=== PATIENT | female | born 1995 | race Caucasian/White ===

== ENCOUNTER 2017-12-20 18:49 | Emergency (ER) | payer BC ==
[2017-12-20 19:52] LABS: Bilirubin Negative (Negative); Blood, Urine Negative (Negative); Clarity CLEAR (Clear); Glucose, Urine (Dipstick) Negative (Negative); Leukocyte Negative (Negative); Nitrite Negative (Negative); Protein, Urine (Dipstick) Negative (Neg-Trace); Specific Gravity, Urine 1.015 (1.002-1.036); Urobilinogen 0.2 mg/dL (0.2-1.0); pH, Urine 7.5 (5.0-9.0)
[2017-12-20 19:54] LABS: Pregnancy Test - Urine (BHCG) Negative (Negative); Pregu Control Background? CLEAR/WHITE (CLR/WHITE); Pregu Control Bar Appear? YES (CONTROL BAR); Specific Gravity 1.015 (1.002-1.036)
[2017-12-20 19:55] LABS: #Eosinphils 0.2 thou/uL (0.0-0.7); #Lymphocytes 2.4 thou/uL (1.20-3.40); #Monocytes 0.5 thou/uL (0.11-0.59); #Neutrophils 7.6 thou/uL (1.40-6.50); %Basophils 0.4 % (0.0-1.0); %Eosinophils 1.5 % (0.0-10.0); %Lymphocytes 22.4 % (21.0-51.0); %Monocytes 4.9 % (0.0-10.0); %Neutrophils 70.8 % (42.0-75.0); Hemoglobin 13.2 g/dL (12.0-16.0); Mean Corpuscular HGB CONC 34.2 g/dL (32.0-36.0); Mean Platelet Volume 7.6 fL (7.4-10.4); Platelet Count 289 thou/uL (130-400); RBC Distribution Width 11.7 % (11.5-14.5); Red Blood Cell (RBC) Count 4.71 mill/uL (4.20-5.40); White Blood Cell (WBC) Count 10.7 thou/uL (4.8-10.8)
[2017-12-20 20:16] LABS: ALT (SGPT) 14 U/L (8-55); AST (SGOT) 13 U/L (5-34); Albumin 4.3 g/dL (3.5-5.0); Alkaline Phosphatase 83 U/L (40-150); Anion Gap 15 mmol/L (10-20); BUN (Urea Nitrogen) 11 mg/dL (7.0-18.7); Bilirubin, Total 0.2 mg/dL (0.2-1.2); CK (CPK) 65 U/L (29-168); Calc. Creatinine Clearance 0 mL/min (70-130); Calcium 8.9 mg/dL (7.8-10.44); Carbon Dioxide 23 mmol/L (22-29); Chloride 107 mmol/L (98-107); Estimated GFR-MDRD Greater than 90; Globulin 2.8 g/dL (2.4-3.5); Glucose 99 mg/dL (70-105); Potassium 3.7 mmol/L (3.5-5.1); Protein, Total 7.1 g/dL (6.0-8.3); Sodium 141 mmol/L (136-145)
== END 2017-12-20 20:38 | disposition home or self-care (01) ==
LOC: ERS 18:49
DX: E86.0 Dehydration (principal); F41.9 Anxiety disorder, unspecified; F32.9 Major depressive disorder, single episode, unspecified; Z79.899 Other long term (current) drug therapy
CPT/HCPCS: 36415; 80053; 81003; 81025; 82550; 85025; 93005

== ENCOUNTER 2018-06-20 10:51 | Outpatient (CLI) | payer BC ==
--- NOTE | 2018-06-20 12:57 | RAD ---
LUMBAR SPINE 2 VIEWS: INDICATION: Spina bifida. FINDINGS: Lumbar vertebrae maintain normal height and alignment. Disk spaces are normally maintained. Rudimen tary ribs are seen in what will be designated as T12 which leaves lumbar-type vertebrae. IMPRESSION: Unremarkable lumbar spine. POS: [facility]
== END 2018-06-20 10:52 | disposition home or self-care (01) ==
LOC: RAD 10:51
PROVIDERS: ATTEND Obstetrics & Gynecology
DX: Z13.79 Encounter for other screening for genetic and chromosomal anomalies (principal); Q76.0 Spina bifida occulta
CPT/HCPCS: 72100

== ENCOUNTER 2018-11-04 16:42 | Inpatient (IN) | payer BC ==
[2018-11-04 17:54] VITALS: BMI 33.2
[2018-11-04] MEDS ORDERED: Lactated Ringer's 1,000 ML IV SCH (19:30)
[2018-11-04] MEDS: Butorphanol Tartrate 1 MG/ML VIAL SLOW IVP PRN (19:59)
[2018-11-04] MEDS: Lactated Ringer's 1,000 ML IV SCH (20:47)
[2018-11-04] MEDS ORDERED: Promethazine HCl 25 MG/ML VIAL IM PRN (21:01)
[2018-11-04] MEDS ORDERED: HYDROcodone/Acetaminophen 5/325 mg Tablet PO PRN ×2 (21:01)
[2018-11-04] MEDS ORDERED: Meperidine HCl/PF 25 MG/ML VIAL IM/IV PRN (21:01)
[2018-11-04] MEDS ORDERED: NS / Oxytocin 40 units/1000ml 1,000 ML IV PRN (21:01)
[2018-11-04] MEDS ORDERED: Ibuprofen 800 MG TAB PO PRN (21:01)
[2018-11-04] MEDS ORDERED: Lidocaine 1% (PF) 30 ML VIAL SC PRN (21:01)
[2018-11-04] MEDS ORDERED: Ondansetron PF 4 MG/2 ML Vial IVP PRN (21:01)
--- NOTE | 2018-11-04 21:09 | PDOC.LDHP ---
Labor and Delivery H&P Chief complaint: contractions HPI: 23 yo WF presents c/o UCs and decreased FM this PM. Denies SROM or bleeding. Current gestational age (weeks): 35 Due date: 12/04/18 Dating criteria: last menstrual period Grav: 1 Para: 0 OB History Details: PNC with Dr. Fermin w/o complications. Current complications: none Abnormal US findings: No Past Medical History: spina bifida occulta, anxiety Current medications: pre- vitamins, iron, other (Zoloft) Previous surgical history: other (umbilical hernia, breast augmentation) Allergies/Adverse Reactions: Allergies Allergy/AdvReac Type Severity Reaction Status Date / Time No Known Allergies Allergy Unverified 11/04/18 17:42 Social history: none - Physical Exam Vital signs reviewed and normal: yes General: NAD Lungs: nonlabored breathing Abdomen: NTTP Extremeties: trace edema FHT: category 1 [place] contractions every: UCs q 5-8 mins - Vaginal Exam cm dilated: 2 Effacement: 75% Station: -1 - OB Labs GBS: unknown - Assessment L&D Assessment: labor - Plan Plan: admit to L&D, GBS antibiotic prophylaxis, informed consent obtained (will admit and observe for progress, start GBS ppx and steroids for FLM, Dr. Cummings aware of admit)
[2018-11-04] MEDS ORDERED: Penicillin G Potassium 5 MILL.UNITS in Sodium Chloride 0.9% 100 ML IVPB SCH (21:15)
[2018-11-04] MEDS: Betamet Acet/Betamet Na Ph 30 MG/5 ML VIAL IM SCH (21:33)
[2018-11-04 21:59] LABS: Hemoglobin 13.7 g/dL (12.0-16.0); Mean Corpuscular Hemoglobin 28.3 pg (27.0-31.0); Mean Corpuscular Volume 83.1 fL (78.0-98.0); Mean Platelet Volume 8.5 fL (7.4-10.4); Platelet Count 332 thou/uL (130-400); RBC Distribution Width 11.7 % (11.5-14.5); Red Blood Cell (RBC) Count 4.85 mill/uL (4.20-5.40); White Blood Cell (WBC) Count 13.9 thou/uL (4.8-10.8)
[2018-11-04 22:38] LABS: Syphilis Antibody Nonreactive (Nonreactive); Syphilis Antibody Index 0.03 S/CO (<1.00 Non-Reactive)
[2018-11-04 22:39] LABS: HBSAg Index 0.44 S/CO (0-0.99); Hep B Surf Ag Non-Reactive S/CO (NonReactive)
[2018-11-05] MEDS: Penicillin G 2.5 MILL.units 2.5 MILL.UNITS in Premix Bag 1 BAG IVPB SCH ×2 (01:11→05:30)
[2018-11-05] MEDS: Butorphanol Tartrate 1 MG/ML VIAL SLOW IVP PRN ×2 (03:04→16:55)
[2018-11-05] MEDS: Lactated Ringer's 1,000 ML IV SCH ×2 (04:47→13:51)
--- NOTE | 2018-11-05 08:44 | PDOC.LDPN ---
Labor & Delivery Progress Note - Subjective Subjective: comfortable - Objective Vital signs reviewed and normal: yes General: NAD Uterine fundus: non tender Dilation: 1 Effacement: 50% Station: -2 FHT: category 1 [place] contractions every: rare irritability - Assessment (1) contractions Code(s): O47.9 - FALSE LABOR, UNSPECIFIED Current Visit: Yes Status: Acute (2) 35 weeks gestation of Code(s): Z3A.35 - 35 WEEKS GESTATION OF Current Visit: Yes Status : Acute -: SVE stable from yesterday Continue IVF Plan for BMTZ #2 @ 2129 D/C PCN G Allow diet. Plan to observe until BMTZ course complete, then plan for d/c home this PM or tomorrow AM
[2018-11-05] MEDS: Betamet Acet/Betamet Na Ph 30 MG/5 ML VIAL IM SCH (21:35)
--- NOTE | 2018-11-05 21:52 | PDOC.LDPN ---
Labor & Delivery Progress Note - Subjective Subjective: comfortable - Objective Vital signs reviewed and normal: yes General: NAD Uterine fundus: non tender FHT: category 1 [place] contractions every: rare ctx - Assessment (1) contractions Code(s): O47.9 - FALSE LABOR, UNSPECIFIED Current Visit: Yes Status: Acute (2) 35 weeks gestation of Code(s): Z3A.35 - 35 WEEKS GESTATION OF Current Visit: Yes Status : Acute -: Now s/p BMTZ x2 SVE unchanged throughout the day Desires d/c home. PTL warnings reviewed.
--- NOTE | 2018-11-06 04:48 | DIS ---
DATE OF ADMISSION: 11/04/2018 DATE OF DISCHARGE: 11/05/2018 ADMISSION PHYSICIAN: Renny Wilson MD DISCHARGE PHYSICIAN: Jazmyne Chaves DO ADMISSION DIAGNOSES: 1. 35 week 5 day intrauterine . 2. Threatened labor. DISCHARGE DIAGNOSES: 1. 35 week 6 day intrauterine . 2. Threatened labor. BRIEF HOSPITAL COURSE: Ms. Sapna Finn is a 23-year-old, G1, P0, at 35 weeks and five days who presented with complaints fo decreased movement and notable contractions. The heart tracing was reassuring/reactive. Patient was found to be in labor. She had a slight cervical change from 1 to 2 cm. Therefore, was kept for observation. She received betamethasone course for lung maturity. She was also initially started on group B strep prophylaxis, however, this has been discontinued as she did not advance any cervical dilation. Group B strep culture is still pending. Patient was observed for over 24 hours with no additional cervical change and desired to be discharged home today. She has followup scheduled with me on 11/08/2018. ACTIVITY RESTRICTIONS: Recommended pelvic rest. DIET: Regular. CODE: Full. FOLLOWUP: Follow up in three days. Job ID: [id number] MTDD
== END 2018-11-05 22:00 | disposition home or self-care (01) | DRG 833 ==
LOC: L&D/OP 16:42 → L&D 21:22
PROVIDERS: ADMIT Obstetrics & Gynecology; ATTEND Obstetrics & Gynecology
DX: O47.03 False labor before 37 completed weeks of gestation, third trimester (principal); Z3A.35 35 weeks gestation of pregnancy; O99.343 Other mental disorders complicating pregnancy, third trimester; F41.9 Anxiety disorder, unspecified
CPT/HCPCS: 36415; 85027; 86780; 86850; 86900; 86901; 87081; 87340; J0595; J0702; J2540; J3490

== ENCOUNTER 2018-11-11 14:34 | Day surgery (SDC) | payer BC ==
[2018-11-11 15:18] VITALS: BP 128/81; TEMP 98.8; BMI 35.5
--- NOTE | 2018-11-11 15:54 | PDOC.LDHP ---
Labor and Delivery H&P Chief complaint: other (PIH workup) HPI: 23 y/o G1 at 36w5d, patient of Dr. Chaves, sent from clinic for elevated BPs. Also starting to have some ctx more regularly. Denies VB, LOF, PIH sx or other concerns. +FM. ROS neg for HEENT, CV, pulm, GI, , neuro, psych, skin, musculoskeletal, or constitutional symptoms other than mentioned above. OB History Details: First Current complications: none Past Medical History: None Current medications: pre- vitamins Previous surgical history: none Allergies/Adverse Reactions: Allergies Allergy/AdvReac Type Severity Reaction Status Date / Time No Known Allergies Allergy Verified 11/11/18 15:18 Social history: none - Physical Exam Vital signs reviewed and normal: yes General: NAD, resting Lungs: nonlabored breathing Abdomen: gravid Extremeties: no edema FHT: category 1 [place] contractions every: Irregular 2-7 mins - Assessment 23 y/o G1 at 36w5d with no e/o preeclampsia. BPs, labs normal. status reassuring with reactive NST. - Plan -: D/c home with precautions. Advised to keep all appointments.
[2018-11-11 16:20] LABS: Creatinine, Urine 118.92 mg/dL (47-110)
[2018-11-11 16:23] LABS: #Eosinphils 0.1 thou/uL (0.0-0.7); #Lymphocytes 1.8 thou/uL (1.20-3.40); #Neutrophils 9.3 thou/uL (1.40-6.50); %Basophils 0.3 % (0.0-1.0); %Eosinophils 0.7 % (0.0-10.0); %Lymphocytes 14.6 % (21.0-51.0); %Monocytes 8.4 % (0.0-10.0); Hemoglobin 13.5 g/dL (12.0-16.0); Mean Corpuscular HGB CONC 34.9 g/dL (32.0-36.0); Mean Corpuscular Hemoglobin 28.8 pg (27.0-31.0); Mean Corpuscular Volume 82.7 fL (78.0-98.0); Mean Platelet Volume 7.7 fL (7.4-10.4); Platelet Count 325 thou/uL (130-400); RBC Distribution Width 11.6 % (11.5-14.5); White Blood Cell (WBC) Count 12.2 thou/uL (4.8-10.8)
[2018-11-11 16:41] LABS: ALT (SGPT) 7 U/L (8-55); AST (SGOT) 10 U/L (5-34); Albumin 3.5 g/dL (3.5-5.0); Alkaline Phosphatase 180 U/L (40-150); Anion Gap 15 mmol/L (10-20); BUN (Urea Nitrogen) 9 mg/dL (7.0-18.7); Bilirubin, Total 0.2 mg/dL (0.2-1.2); Calc. Creatinine Clearance 181 mL/min (70-130); Carbon Dioxide 19 mmol/L (22-29); Chloride 103 mmol/L (98-107); Estimated GFR-MDRD Greater than 90; Globulin 3.5 g/dL (2.4-3.5); Glucose 99 mg/dL (70-105); Potassium 4.1 mmol/L (3.5-5.1); Sodium 133 mmol/L (136-145)
== END 2018-11-11 17:15 | disposition home or self-care (01) ==
LOC: L&D/OP 14:34
PROVIDERS: ATTEND Obstetrics & Gynecology
DX: O99.89 Other specified diseases and conditions complicating pregnancy, childbirth and the puerperium (principal); R03.0 Elevated blood-pressure reading, without diagnosis of hypertension; Z3A.36 36 weeks gestation of pregnancy
CPT/HCPCS: 36415; 80053; 82570; 84156; 85025; 99284

== ENCOUNTER 2018-11-20 18:51 | Day surgery (SDC) | payer BC ==
[2018-11-20 19:24] VITALS: BMI 35.2
[2018-11-20] MEDS ORDERED: hydrALAZINE 20 MG/ML VIAL SLOW IVP PRN (19:44)
--- NOTE | 2018-11-20 19:45 | PDOC.EVN ---
Event Note - Event Note Event Note: HISTORY AND PHYSICAL Time: 1945 Chief complaint: other (Possible SROM at 1230) HPI: Patient of Dr Hernandez Triage A 37 yo G1 with possible LOF since noon. No CTX, no VB, good FM. Review of Systems: comlete ROS performed and as per HPI Current gestational age (weeks): 38 Due date: 12/04/18 Dating criteria: last menstrual period Grav: 1 Current complications: none Abnormal US findings: No Past Medical History: Mild spina bifida Current medications: pre- vitamins Previous surgical history: other (Breast augmentation. Hernia surgery) Allergies/Adverse Reactions: Allergies Allergy/AdvReac Type Severity Reaction Status Date / Time No Known Drug Allergies Allergy Verified 11/20/18 19:10 Social history: none - Physical Exam Vital signs reviewed and normal: yes (130/89 max BP, afebrile) General: NAD Heart: RRR Lungs: CTAB Abdomen: gravid FHT: category 1 [place] contractions every: none - Assessment Possible ROM at 38 weeks, G1...Chief complaint: other (Possible SROM at 1230) HPI: Patient of Dr Hernandez Triage A 37 yo G1 with possible LOF since noon. No CTX, no VB, good FM. Review of Systems: comlete ROS performed and as per HPI Current gestational age (weeks): 38 Due date: 12/04/18 Dating criteria: last menstrual period Grav: 1 Current complications: none Abnormal US findings: No Past Medical History: Mild spina bifida Current medications: pre- vitamins Previous surgical history: other (Breast augmentation. Hernia surgery) Allergies/Adverse Reactions: Allergies Allergy/AdvReac Type Severity Reaction Status Date / Time No Known Drug Allergies Allergy Verified 11/20/18 19:10 Social history: none - Physical Exam Vital signs reviewed and normal: yes (130/89 max BP, afebrile) General: NAD Heart: RRR Lungs: CTAB Abdomen: gravid FHT: category 1 [place] contractions every: none - Assessment Possible ROM at 38 weeks, G1...pateint with mild spina bifida hx. - Plan Plan: other (SSE pending; sent. Serial BPs) pateint with mild spina bifida hx. - Plan Plan: other (SSE pending; sent. Serial BPs)
--- NOTE | 2018-11-20 19:56 | PDOC.EVN ---
Event Note - Event Note Event Note: Sterile Spec Exam: SSE explained to the patient: SSE performed. CX visually closed; no pooling, no LOF with cough/valsalva...my exam is negative for ROM> sent to confirm. Spina bifida HX reviewed NST reactive
[2018-11-20 20:16] LABS: Amnisure Test No Membranes Rupture (No Rupture)
[2018-11-20 20:17] LABS: Amnisure Internal Control QC ACCEPTABLE (ACCEPTABLE)
== END 2018-11-20 20:25 | disposition home or self-care (01) ==
LOC: L&D/OP 18:51
PROVIDERS: ATTEND Obstetrics & Gynecology
DX: O99.89 Other specified diseases and conditions complicating pregnancy, childbirth and the puerperium (principal); N89.8 Other specified noninflammatory disorders of vagina; Q05.9 Spina bifida, unspecified; Z79.899 Other long term (current) drug therapy; Z3A.38 38 weeks gestation of pregnancy
CPT/HCPCS: 84112; 99283

== ENCOUNTER 2018-11-25 17:50 | Day surgery (SDC) | payer BC ==
[2018-11-25 18:31] VITALS: BMI 36.1
[2018-11-25] MEDS ORDERED: hydrALAZINE 20 MG/ML VIAL SLOW IVP PRN (22:24)
--- NOTE | 2018-11-26 10:58 | PRG ---
DATE OF SERVICE: 11/25/2018 PRIMARY OB: Dr. Jazmyne Chaves. CHIEF COMPLAINT: Abdominal pain. HISTORY OF PRESENT ILLNESS: The patient is a 23-year-old G1, P0 female with an intrauterine at 38 weeks and 5 days presenting to Labor and Delivery with recurrent uterine contractions. The patient reports that they have been occurring since yesterday. She reports contractions about every 7 to 10 minutes. The patient denies any vaginal bleeding or leaking fluid. She denies any fever, fall, headache, chest pain, shortness of breath, nausea, vomiting, diarrhea, constipation, hip problems, knee problems, muscle weakness, urinary urgency or frequency. The patient reports that her last doctor's visit on Wednesday, the patient was 3 cm dilated. Repeat exam, 3 hours later, is unchanged, 4, 80, -2 station. PAST MEDICAL HISTORY: Spina bifida occulta and depression. PAST SURGICAL HISTORY: Umbilical hernia repair and breast surgery. SOCIAL HISTORY: Denies drug, alcohol, or tobacco use. ALLERGIES: NO KNOWN DRUG ALLERGIES. MEDICATIONS: 1. vitamins. 2. Sertraline 50 mg tablets daily. PHYSICAL EXAMINATION: VITAL SIGNS: Blood pressure 136/87, heart rate of 91, respiratory rate 18, saturating 98% on room air, temperature 98.6. GENERAL: She appears to be in no acute distress. She is alert, oriented, cooperative, and pleasant to interact with. HEENT: Head; normocephalic, atraumatic. LUNGS: Clear to auscultation bilaterally. HEART: Regular rate and rhythm. ABDOMEN: Gravid and soft in between contractions. EXTREMITIES: Nontender, nonedematous. CERVICAL: Per nursing staff, is 4, 85, and -1 station. DIAGNOSTIC STUDIES: heart tracing shows fetus with a baseline in the 130s with moderate long-term variability, positive 15 x 15 accelerations, no decelerations. Contractions show a lot of irritability, no consistent contraction pattern. ASSESSMENT AND PLAN: The patient is a 23-year-old G1, P0 female with an intrauterine at 30 weeks and 5 days in latent labor. The patient has had very slow change management manager the last couple of weeks and has had no change management manager the last 3 hours. The patient is being discharged to home. Fetus has reactive NST and category 1 tracing. The patient is offered pain medication to help her for the next few hours, which she has declined. We did recommend considering 2 tablets of Benadryl tonight before going to bed in an attempt to help her sleep. The patient does have a scheduled date of induction for next Wednesday. Job ID: [id number]
== END 2018-11-25 22:00 | disposition home or self-care (01) ==
LOC: L&D/OP 17:50
PROVIDERS: ATTEND Obstetrics & Gynecology
DX: O47.1 False labor at or after 37 completed weeks of gestation (principal); O99.343 Other mental disorders complicating pregnancy, third trimester; F32.9 Major depressive disorder, single episode, unspecified; Z79.899 Other long term (current) drug therapy; Z3A.38 38 weeks gestation of pregnancy

== ENCOUNTER 2018-11-28 05:37 | Inpatient (IN) | payer BC ==
--- NOTE | 2018-11-27 16:37 | PDOC.LDHP ---
Labor and Delivery H&P Chief complaint: scheduled induction HPI: 23 yo @ 39w1d by LMP c/w 6 week CRL presents for EIOL. PMHx: Maternal spina bifida occulta with normal X rays and evaluation by anesthesia, depression controlled on Zoloft. Current gestational age (weeks): 39 Due date: 12/04/18 Dating criteria: last menstrual period Grav: 1 Para: 0 Current complications: none Abnormal US findings: No Past Medical History: Depression Maternal spina bifida occulta Current medications: pre-medina vitamins, other (folic acid Zoloft 50 mg) Previous surgical history: other (umbilical hernia repair) Allergies/Adverse Reactions: Allergies Allergy/AdvReac Type Severity Reaction Status Date / Time No Known Allergies Allergy Verified 11/11/18 15:18 Social history: none - Physical Exam Vital signs reviewed and normal: yes General: NAD Heart: RRR Lungs: nonlabored breathing Abdomen: gravid Extremeties: no edema FHT: category 1 (120s, mod alfreda, +accels, no decels) [place] contractions every: q2-5min, irregular - Vaginal Exam cm dilated: 4 (cephalic, AROM clear ) Effacement: 90% Station: -1 - OB Labs Blood type: B RH: positive Antibody Screen: negative HIV: negative RPR: negative HEPSAg: negative 1 hour GCT: negative GBS: negative Urine drug screen: negative Rubella: immune Additional Labs: NIPT, NT and msAFP wnl Normal MFM anatomy sono - Assessment 23 yo G1 @ 39w1d EIOL Depression Maternal spina bifida occulta - Plan Plan: admit to L&D, informed consent obtained, anesthesia consult for pain management -: Started pitocin and s/p AROM for IOL
[2018-11-28] MEDS ORDERED: Carboprost 250 MCG/ML AMP IM PRN (06:00)
[2018-11-28] MEDS ORDERED: Butorphanol Tartrate 1 MG/ML VIAL SLOW IVP PRN (06:00)
[2018-11-28] MEDS ORDERED: Promethazine HCl 25 MG/ML VIAL IM PRN ×2 (06:00→08:05)
[2018-11-28] MEDS ORDERED: hydrALAZINE 20 MG/ML VIAL SLOW IVP PRN ×2 (06:00→19:20)
[2018-11-28] MEDS ORDERED: Diphenoxylate HCl/Atropine Tablet PO PRN (06:00)
[2018-11-28] MEDS ORDERED: Acetaminophen 500 MG TAB PO PRN (06:00)
[2018-11-28] MEDS ORDERED: HYDROcodone/Acetaminophen 5/325 mg Tablet PO PRN ×2 (06:00→19:20)
[2018-11-28] MEDS ORDERED: Methylergonovine 0.2 MG/ML VIAL IM PRN ×2 (06:00→19:20)
[2018-11-28] MEDS ORDERED: Misoprostol 200 MCG TAB PR PRN (06:00)
[2018-11-28] MEDS ORDERED: Lidocaine 1% (PF) 30 ML VIAL SC PRN (06:00)
[2018-11-28] MEDS ORDERED: Ibuprofen 800 MG TAB PO PRN (06:00)
[2018-11-28 06:11] VITALS: BMI 36.1
[2018-11-28] MEDS: Lactated Ringer's 1,000 ML IV SCH ×2 (06:24→17:10)
[2018-11-28 06:44] LABS: Hemoglobin 12.9 g/dL (12.0-16.0); Mean Corpuscular HGB CONC 34.3 g/dL (32.0-36.0); Mean Corpuscular Hemoglobin 28.4 pg (27.0-31.0); Mean Corpuscular Volume 82.9 fL (78.0-98.0); Mean Platelet Volume 7.6 fL (7.4-10.4); Platelet Count 255 thou/uL (130-400); RBC Distribution Width 12.4 % (11.5-14.5); Red Blood Cell (RBC) Count 4.53 mill/uL (4.20-5.40); White Blood Cell (WBC) Count 13.3 thou/uL (4.8-10.8)
[2018-11-28] MEDS: NS w/ Oxytocin 10 units 500 ML IV SCH (07:17)
[2018-11-28 07:23] LABS: HBSAg Index 0.14 S/CO (0-0.99); HIV (1/2) Antibody/Antigen Non-Reactive (NonReactive); HIV 1/2 INDEX 0.08 S/CO (<1.00); Hep B Surf Ag Non-Reactive S/CO (NonReactive); Syphilis Antibody Nonreactive (Nonreactive); Syphilis Antibody Index 0.03 S/CO (<1.00 Non-Reactive)
[2018-11-28] MEDS ORDERED: Fentanyl 4 mcg/Bup 0.1% Cadd 100 ML ONE ×2 (07:27→14:34)
[2018-11-28] MEDS ORDERED: Lidocaine 1.5%/Epinephrine 1:200,000 5 ML AMPUL IJ ONE (07:38)
[2018-11-28] MEDS ORDERED: Ondansetron PF 4 MG/2 ML Vial IVP PRN (08:05)
[2018-11-28] MEDS ORDERED: Acetaminophen 325 MG TAB PO PRN (08:05)
[2018-11-28] MEDS ORDERED: diphenhydrAMINE 50 MG/ML VIAL IVP PRN (08:05)
[2018-11-28] MEDS ORDERED: Naloxone HCl 0.4 mg/ml Vial IVP PRN ×2 (08:05)
[2018-11-28] MEDS ORDERED: Lactated Ringer's 500 ML IV PRN (08:05)
[2018-11-28] MEDS ORDERED: ePHEDrine/0.9% NaCl/PF SYRINGE 50 mg/10 ml SLOW IVP PRN (08:05)
[2018-11-28] MEDS ORDERED: Communication Order-Pharmacy FS SCH (08:15)
[2018-11-28] MEDS: Ondansetron PF 4 MG/2 ML Vial IVP PRN ×2 (08:36→16:04)
[2018-11-28] MEDS: Fentanyl 4 mcg/Bupivacaine 0.1% Cassette 100 ML EPIDURAL SCH ×2 (08:37→14:30)
[2018-11-28] MEDS ORDERED: Fentanyl 100 MCG/2 ML VIAL ONE (17:01)
[2018-11-28] MEDS: NS / Oxytocin 40 units/1000ml 1,000 ML IV PRN ×2 (17:54→18:55)
--- NOTE | 2018-11-28 18:26 | PDOC.OPDEL ---
OB Operative/Delivery Note Delivery Dr/Surgeon: Jazmyne Chaves DO Pre-Delivery Diagnosis: elective induction Procedure/Post Delivery Dx: spontaneous vaginal delivery Weeks gestation: 39 Anesthesia: epidural - Findings A Sex: male - 1 min: 1 - 5 min: 1 (apgars 10 min: 6; 15 min: 10) - Additional Findings/Plan Placenta delivered: spontaneous Repaired Obstetrical Laceration: 2nd degree Estimated blood loss: QBL 285 cc Compilations/Other Findings: Maternal pushing for approx 2hrs . decel just prior to delivery to 90s x 3 min. delivered with maternal expulsive efforts and Ritgens maneuver. Infant with no respiratory drive on initial presentation. Cord clamped and cut, placed in warmer and NICU team called. Normal appearing placenta. Cord gases obtained, however, not able to be run due to clotted according to nurse staff industrial. I was notified regarding clotted sample at 1930. Post delivery plan: routine recovery ( intubated and taken to NICU)
[2018-11-28] MEDS ORDERED: NS / Oxytocin 40 units/1000ml 1,000 ML IV SCH (19:20)
[2018-11-28] MEDS ORDERED: Benzocaine-Menthol 82.5 ML CAN TOP PRN (19:20)
[2018-11-28] MEDS ORDERED: diphenhydrAMINE 25 MG CAP PO PRN (19:20)
[2018-11-28] MEDS ORDERED: Bisacodyl 10 MG SUPP PR PRN (19:20)
[2018-11-28] MEDS ORDERED: Milk Of Magnesia 30 ML UDCUP PO PRN (19:20)
[2018-11-28] MEDS ORDERED: Preparation H Ointment 28 GM TUBE PR PRN (19:20)
[2018-11-28] MEDS ORDERED: Misoprostol 200 MCG TAB VAG PRN (19:20)
[2018-11-28] MEDS: Docusate Calcium (SURFAK) 240 MG CAP PO SCH (22:29)
[2018-11-28] MEDS: Ibuprofen 800 MG TAB PO SCH (22:29)
[2018-11-29 04:40] LABS: Hemoglobin 9.8 g/dL (12.0-16.0); Mean Corpuscular HGB CONC 34.6 g/dL (32.0-36.0); Mean Platelet Volume 7.1 fL (7.4-10.4); Platelet Count 221 thou/uL (130-400); RBC Distribution Width 12.3 % (11.5-14.5); Red Blood Cell (RBC) Count 3.38 mill/uL (4.20-5.40); White Blood Cell (WBC) Count 13.8 thou/uL (4.8-10.8)
[2018-11-29] MEDS: Ibuprofen 800 MG TAB PO SCH ×3 (05:40→21:43)
--- NOTE | 2018-11-29 08:47 | PDOC.PP ---
Post Progress Note Post Day #: 1 Subjective: Pt is doing well this morning. Pain well controlled. She is up and ambulatory. She is having mil-mod lochia but it is controlled and no gushing sensation. She is eating and drinking well. She is breast pumping as the baby is in the NICU. PO intake tolerated: yes Flatus: yes Ambulation: yes Vital Signs (12 hours) Temp Pulse Resp BP Pulse Ox 11/29/18 08:23 98.0 F 68 20 103/58 L 97 11/29/18 05:20 98.6 F 62 18 98/55 L 11/29/18 00:20 98.6 F 77 18 106/55 L 11/28/18 20:55 99.0 F 80 18 112/53 L 96 Weight Weight 185 lb - Physical Examination General: NAD Respiratory: non-labored breathing Abdominal: + bowel sounds, no distention, appropriately TTP Deviation from normal: 1 cm below umbilicus Extremities: negative homans (B) Neurological: no gross focal deficits Psychiatric: A&Ox3, normal affect Result Diagrams: 11/29/18 03:52 Additional Labs: Post Labs Blood Type B POSITIVE 11/28/18 06:32 Hep Bs Antigen Non-Reactive S/CO (NonReactive) 11/28/18 06:32 - Assessment/Plan PPD 1 s/p patient doing well. Pain controlled. PT is breast pumping with infant in NICU. Hx of depression- controlled at this time maternal Hx of spina bifida. PT neurologically at base line. Continue post care at this time with plan for possible D/c tomorrow or Thursda.
[2018-11-29] MEDS: Prenatal Vitamin 1 TAB PO SCH (11:00)
[2018-11-29] MEDS: Ferrous Sulfate 325 MG TAB PO SCH ×2 (11:00→17:13)
[2018-11-29] MEDS: Docusate Calcium (SURFAK) 240 MG CAP PO SCH ×2 (11:00→21:42)
[2018-11-29] MEDS ORDERED: Bupivacaine 0.25% HCL 30 ML VIAL ONE (18:00)
[2018-11-29] MEDS ORDERED: Bupivacaine/Epinephrine 0.25% 30 ML VIAL ONE (18:00)
[2018-11-30] MEDS: Ibuprofen 800 MG TAB PO SCH ×2 (05:04→13:50)
--- NOTE | 2018-11-30 08:00 | PDOC.PP ---
Post Progress Note Post Day #: 2 Subjective: Minimal pain and lochia. Pumping. Infant still in NICU, hopeful to remove O2 today. PO intake tolerated: yes Flatus: yes Ambulation: yes Vital Signs (12 hours) Temp Pulse Resp BP Pulse Ox 11/29/18 20:45 98.0 F 72 18 117/69 97 Weight Weight 185 lb - Physical Examination General: NAD Cardiovascular: RRR Respiratory: non-labored breathing Abdominal: no distention, appropriately TTP Fundus firm & at: below umbilicus Extremities: negative homans (B) Neurological: no gross focal deficits Psychiatric: A&Ox3, normal affect Result Diagrams: 11/29/18 03:52 Additional Labs: Post Labs Blood Type B POSITIVE 11/28/18 06:32 Hep Bs Antigen Non-Reactive S/CO (NonReactive) 11/28/18 06:32 (1) Vaginal delivery Code(s): O80 - ENCOUNTER FOR FULL-TERM UNCOMPLICATED DELIVERY Status: Acute (2) Anemia Code(s): D64.9 - ANEMIA, UNSPECIFIED Status: Acute Qualifiers: Other causes of anemia: acute posthemorrhagic - Assessment/Plan PPD2 VSSAF Mother is meeting d/c requirements. Plan for d/c to B&B due to in NICU.
[2018-11-30] MEDS: NS w/ Oxytocin 10 units 500 ML IV SCH (08:16)
[2018-11-30 08:36] VITALS: BP 123/81; TEMP 98.4
[2018-11-30] MEDS: Ferrous Sulfate 325 MG TAB PO SCH ×2 (10:56→17:00)
[2018-11-30] MEDS: Prenatal Vitamin 1 TAB PO SCH (10:56)
[2018-11-30] MEDS: Docusate Calcium (SURFAK) 240 MG CAP PO SCH (10:56)
== END 2018-11-30 17:30 | disposition home or self-care (01) | DRG 806 ==
LOC: L&D 05:37 → 3SW 21:59
PROVIDERS: ADMIT Obstetrics & Gynecology; ATTEND Obstetrics & Gynecology
PROC: 10E0XZZ Delivery of Products of Conception, External Approach (ICD-10-PCS; principal; 2018-11-28)
PROC: 0KQM0ZZ Repair Perineum Muscle, Open Approach (ICD-10-PCS; 2018-11-28)
PROC: 3E033VJ Introduction of Other Hormone into Peripheral Vein, Percutaneous Approach (ICD-10-PCS; 2018-11-28)
DX: O99.344 Other mental disorders complicating childbirth (principal); D62 Acute posthemorrhagic anemia; Z37.0 Single live birth; F32.9 Major depressive disorder, single episode, unspecified; O70.1 Second degree perineal laceration during delivery; Z3A.39 39 weeks gestation of pregnancy; O90.81 Anemia of the puerperium
CPT/HCPCS: 36415; 51701; 51702; 76815; 85027; 86780; 86850; 86900; 86901; 87340; 87389; 99283; J2001; J2405; J2590; J3010; J3490; S0020